=== PATIENT | male | born 1970 | race African-American/Black ===

== ENCOUNTER 2019-04-18 11:20 | Emergency (ER) | payer OTHER ==
[2019-04-18] MEDS ORDERED: Acetaminophen TAB* 325 MG PO ONE (12:55)
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
[2019-04-18] MEDS ORDERED: oxyCODONE/Acetamin 5/325 MG* TAB PO ONE (13:35)
[2019-04-18] MEDS ORDERED: Heparin DRIP 25,000 UNITS(*) 25,000 UNITS/500 ML BAG IV SCH ×2 (13:45→14:15)
[2019-04-18] MEDS ORDERED: Enoxaparin(*) 100 MG/ML SYR SUBCUT ONE (13:51)
[2019-04-18 14:07] LABS: Hematocrit 39 % (42-52); Hemoglobin 12.8 g/dL (14.0-18.0); Mean Corpuscular HGB Conc 33 g/dL (31-36); Mean Corpuscular Hemoglobin 28 pg (27-31); Mean Corpuscular Volume 85 fL (80-94); Mean Platelet Volume 8.6 fL (7.4-10.4); Platelet Count 184 10^3/uL (150-450); Red Blood Count 4.58 10^6 /uL (4.18-5.48); Red Cell Distribution Width 14 % (10-15); White Blood Count 6.5 10^3/uL (3.5-10.8)
[2019-04-18 14:22] LABS: Albumin 4.2 g/dL (3.2-5.2); Albumin/Globulin Ratio 1.1 (1-3); BUN/Creatinine Ratio 11.6 (8-20); Calcium 8.9 mg/dL (8.6-10.3); EGFR African American 71.6 (>60); EGFR Non-African American 59.2 (>60); Globulin 3.9 g/dL (2-4); Potassium 4.5 mmol/L (3.5-5.0); Total Bilirubin 0.5 mg/dL (0.2-1.0); Total Protein 8.1 g/dL (6.4-8.9)
[2019-04-18] MEDS ORDERED: Heparin VIAL(*) 5000 UNITS/ML VIAL (FIVE THOUSAND) IV SCH (15:00)
[2019-04-18 15:51] LABS: INR 1.21 (0.82-1.09)
[2019-04-18 16:08] LABS: Activated Partial Thrombo Time 212.3 seconds (26.0-38.0)
[2019-04-18] MEDS ORDERED: traMADol TAB* 50 MG PO ONE (16:56)
[2019-04-18 17:29] VITALS: BP 157/76
--- NOTE | 2019-04-19 13:14 | PN ---
Hospitalist Progress Note Date of Service: 04/18/19 HOSPITALIST NOTE Late entry for 04/18/19 at 4PM. I was called by Dr Olson for admission of a 49yo M, currently [facility] inmate, with PMH of protein C/S deficiency, prior DVT, who presented to ED with c/o right calf pain and edema. He was diagnosed with a DVT and offered NOACs, but declined. He was then offered Lovenox and Dr Olson contacted me for admission and I explained [facility] can provide treatment with Lovenox. Dr Olson contacted the facility and confirmed patient could be treated there, but patient declined Lovenox because it causes bruising, and wanted to be admitted for Heparin drip/Warfarin. Dr Olson then called me again for admission , and I explained it was not clear to me patient could refuse adequate treatment at [facility], only so he could be admitted to the Hospital. I contacted [facility] and talked to Nurse Cheung. She was under the impression patient could not refuse Lovenox and could be sent back to the facility, but was not sure. I then contacted Dr Ford who was also not sure if patient could refuse treatment and recommended getting legal advice. As it was already late in the day, decision was made to admit the patient overnight and then try to figure out the situation in AM. Nurse Cheung called me back and told me her medical diagnostic radiographer agreed with her opinion and patient should be sent back. At that point I told her about my conversation with Dr Ford and plan to admit overnight and talk to legal sales training representative in AM. I assigned the patient to one of our providers, but when he arrived at the ED, the patient was being discharged. As per Dr Olson documentation "The regional sales executive for the [facility], Dr. Cirilo Muir, called me and told me that while the patient is able to refuse certain medical treatments, he is not able to make choices that could lead to unnecessary hospitalization. He also directed that the [facility] to the [facility], and that they would provide him with medications as long as he does not refuse them."
== END 2019-04-18 17:28 ==
LOC: ED 11:20
DX: I82.401 Acute embolism and thrombosis of unspecified deep veins of right lower extremity (principal); Z91.041 Radiographic dye allergy status; Z86.718 Personal history of other venous thrombosis and embolism
CPT/HCPCS: 36415; 71045; 78582; 80053; 85027; 85610; 85730; 96372; 96374; 99283; A9270-GY; A9540; A9558; J1644